=== PATIENT | female | born 1985 | race Caucasian/White ===

== ENCOUNTER 2017-03-11 16:10 | Emergency (ER) | payer OTHER ==
[~2017-03-11] VITALS: Ht 160 cm; Wt 64.2 kg
[~2017-03-11 16:10] MED LIST: ACYCLOVIR200 MG PO; AMPICILLIN TRI500 MG PO; ANAPROX DS550 M1 PO; BACTRIM,SEPT1 TABLET PO; ENDOCET 5-3251 EACH PO; Fioricet,Esgic,Repan PO; IBUPROFEN800 MG PO; IMITREX100 MG PO; IRON325 MG PO; KEFLEX500 MG PO; Lactinex,Floranex PO; Levaquin PO; MOTRIN600 MG PO; NORCO 5/3251 TABLET PO; Naprosyn PO; PRENATAL TABLE1 EAC3 PO; Phenergan PO; TRAMADOL HCL50 MG PO; TYLENOL PM EX-1 EACH PO; Tylenol Regular Stre PO; VALTREX1000 MG PO; VICODIN,LORT1 TABLET PO; Xanax PO; ZANTAC150 MG PO; ZOFRAN4 MG PO
[2017-03-11 16:46] LABS: HEMATOCRIT 36.8 % (36.0-46.0); MCH 29.7 PG (29.0-34.0); MCHC 32.6 G/DL (30.0-36.0); MCV 91.1 FL (83-99); MEAN PLAT.VOLUME 11.1 uM^3 (9.5-12.4); PLATELET COUNT 170 K/uL (156-360); RBC DIS.WIDTH-CV 12.6 % (11.8-14.6); RED BLOOD COUNT 4.04 M/uL (3.80-5.20); WHITE BLOOD COUNT 6.3 K/uL (4.1-10.2)
[2017-03-11 16:54] LABS: CHLORIDE 106 mEq/L (99-109); POTASSIUM 3.8 mEq/L (3.7-5.4); SODIUM 141 mEq/L (136-147)
[2017-03-11 16:56] LABS: GLUCOSE 88 mg/dL (70-99)
[2017-03-11 16:57] LABS: ANION GAP 8 MEQ/L (2-14)
[2017-03-11 17:00] LABS: GFR ESTIMATE (CALCULATED) > 59 mL/min/
[2017-03-11 17:01] LABS: UREA NITROGEN (BUN) 14 mg/dL (9-23)
[2017-03-11 17:08] LABS: TROP-I INTERPRETATION NEGATIVE; TROPONIN-I < 0.01 ng/mL (0.0-0.30)
[2017-03-11] MEDS ORDERED: ATARAX,VISTARIL25 MG PO (17:44)
[2017-03-11] MEDS ORDERED: INDOCIN50 MG PO (17:44)
[2017-03-11 18:11] VITALS: BP 137/65
== END 2017-03-11 18:22 | disposition home or self-care (01) ==
LOC: EME 16:10
PROVIDERS: Physician Assistant
DX: R07.9 Chest pain, unspecified (principal); R10.9 Unspecified abdominal pain; R42 Dizziness and giddiness; F43.9 Reaction to severe stress, unspecified; Z87.891 Personal history of nicotine dependence; R01.1 Cardiac murmur, unspecified; Z82.49 Family history of ischemic heart disease and other diseases of the circulatory system; F41.9 Anxiety disorder, unspecified; Z87.442 Personal history of urinary calculi; Z87.440 Personal history of urinary (tract) infections
CPT/HCPCS: 71020; 80048; 83735; 84443; 84484; 85027; 93005; 99281; 99284; Q0177

== ENCOUNTER 2017-04-13 16:59 | Emergency (ER) | payer OTHER ==
[~2017-04-13] VITALS: Ht 162.6 cm; Wt 64.0 kg
[~2017-04-13 16:59] MED LIST changes: +ATARAX,VISTARIL25 MG PO; +INDOCIN50 MG PO
[2017-04-13 18:06] LABS: APPEARANCE SL.HAZY ((CLEAR)); BILIRUBIN NEGATIVE; BLOOD SMALL; COLOR YELLOW ((YELLOW)); GLUCOSE (STRIP) NEGATIVE; KETONES 80; LEUKOCYTES MODERATE; NITRITE NEGATIVE; PROTEIN (STRIP) 30; SPECIFIC GRAVITY 1.023 (1.000-1.030)
[2017-04-13 18:10] LABS: HEMATOCRIT 37.2 % (36.0-46.0); HEMOGLOBIN 12.4 G/DL (11.9-15.5); MCH 30.2 PG (29.0-34.0); MCHC 33.3 G/DL (30.0-36.0); MCV 90.5 FL (83-99); PLATELET COUNT 119 K/uL (156-360); RBC DIS.WIDTH-CV 12.3 % (11.8-14.6); RBC DIS.WIDTH-SD 40.9 % (39-53); RED BLOOD COUNT 4.11 M/uL (3.80-5.20); WHITE BLOOD COUNT 9.8 K/uL (4.1-10.2)
[2017-04-13 18:12] LABS: BACTERIA RARE /HPF; EPITHELIAL CELLS 2+ /HPF; MUCUS 2+ /LPF; UCUL ADDED? YES; WHITE BLOOD CELLS TNTC /HPF (0-5)
[2017-04-13 18:26] LABS: CHLORIDE 106 mEq/L (99-109); POTASSIUM 3.8 mEq/L (3.7-5.4); SODIUM 138 mEq/L (136-147)
[2017-04-13 18:28] LABS: GLUCOSE 123 mg/dL (70-99)
[2017-04-13 18:32] LABS: CREATININE 0.7 mg/dL (0.6-1.3); GFR ESTIMATE (CALCULATED) > 59 mL/min/; UREA NITROGEN (BUN) 13 mg/dL (9-23)
[2017-04-13 18:35] LABS: QUANTITATIVE HCG < 4.0 MIU/ML
[2017-04-13] MEDS ORDERED: KEFLEX500 MG PO (18:41)
[2017-04-13] MEDS ORDERED: NORCO 5/3251 TABLET PO (18:41)
[2017-04-13] MEDS ORDERED: ZOFRAN4 MG PO (18:41)
[2017-04-13 20:06] VITALS: BP 150/73
== END 2017-04-13 20:06 | disposition home or self-care (01) ==
LOC: EME 16:59
PROVIDERS: Physician Assistant
DX: N12 Tubulo-interstitial nephritis, not specified as acute or chronic (principal); R11.2 Nausea with vomiting, unspecified; Z87.442 Personal history of urinary calculi; Z87.891 Personal history of nicotine dependence
CPT/HCPCS: 80048; 81003; 84702; 85027; 87077; 87086; 87186; 99281; 99285; J0696; J2405; J7030

== ENCOUNTER 2017-05-20 11:58 | Emergency (ER) | payer OTHER ==
[~2017-05-20] VITALS: Ht 162.6 cm; Wt 63.9 kg
[2017-05-20 12:23] LABS: APPEARANCE CLOUDY ((CLEAR)); BILIRUBIN NEGATIVE; BLOOD SMALL; COLOR YELLOW ((YELLOW)); GLUCOSE (STRIP) NEGATIVE; KETONES 80; LEUKOCYTES LARGE; NITRITE POSITIVE; PROTEIN (STRIP) 100; SPECIFIC GRAVITY 1.021 (1.000-1.030); UROBILINOGEN 0.2 MG/DL (0.2-1.0)
[2017-05-20 12:39] LABS: EPITHELIAL CELLS 1+ /HPF; MUCUS 1+ /LPF; RED BLOOD CELLS 0-5 /HPF (0-5); WHITE BLOOD CELLS 40-50 /HPF (0-5)
[2017-05-20 12:40] LABS: BACTERIA 1+ /HPF; UCUL ADDED? YES
[2017-05-20 13:08] LABS: HEMATOCRIT 38.5 % (36.0-46.0); HEMOGLOBIN 12.7 G/DL (11.9-15.5); MCH 29.7 PG (29.0-34.0); PLATELET COUNT 127 K/uL (156-360); RBC DIS.WIDTH-CV 12.6 % (11.8-14.6); RBC DIS.WIDTH-SD 41.7 % (39-53); RED BLOOD COUNT 4.28 M/uL (3.80-5.20); WHITE BLOOD COUNT 13.1 K/uL (4.1-10.2)
[2017-05-20 13:18] LABS: CHLORIDE 102 mEq/L (99-109); POTASSIUM 3.9 mEq/L (3.7-5.4); SODIUM 137 mEq/L (136-147)
[2017-05-20 13:19] LABS: GLUCOSE 97 mg/dL (70-99)
[2017-05-20 13:23] LABS: CREATININE 0.7 mg/dL (0.6-1.3); GFR ESTIMATE (CALCULATED) > 59 mL/min/
[2017-05-20 13:24] LABS: UREA NITROGEN (BUN) 11 mg/dL (9-23)
[2017-05-20 13:32] LABS: QUANTITATIVE HCG < 4.0 MIU/ML
[2017-05-20] MEDS ORDERED: KEFLEX500 MG PO (16:10)
[2017-05-20] MEDS ORDERED: MOTRIN600 MG PO (16:10)
[2017-05-20] MEDS ORDERED: ZOFRAN ODT4 MG PO (16:10)
[2017-05-20] MEDS ORDERED: FLOMAX0.4 MG PO (16:53)
[2017-05-20 17:02] VITALS: BP 124/79
== END 2017-05-20 17:03 | disposition home or self-care (01) ==
LOC: EME 11:58
DX: N20.0 Calculus of kidney (principal); N39.0 Urinary tract infection, site not specified; R50.9 Fever, unspecified; Z87.442 Personal history of urinary calculi; Z87.440 Personal history of urinary (tract) infections; F41.9 Anxiety disorder, unspecified; R56.9 Unspecified convulsions; Z87.891 Personal history of nicotine dependence
CPT/HCPCS: 74176; 80048; 81003; 83605; 84702; 85027; 87077; 87086; 87186; 99281; 99285; J0696; J1885; J2405; J7030

== ENCOUNTER 2017-06-06 16:09 | Emergency (ER) | payer OTHER ==
[~2017-06-06] VITALS: Ht 162.6 cm; Wt 61.9 kg
[~2017-06-06 16:09] MED LIST changes: +FLOMAX0.4 MG PO; +ZOFRAN ODT4 MG PO
[2017-06-06 16:15] VITALS: BP 114/68
[2017-06-06 17:05] LABS: HEMATOCRIT 37.9 % (36.0-46.0); HEMOGLOBIN 12.5 G/DL (11.9-15.5); MCH 29.6 PG (29.0-34.0); MCV 89.8 FL (83-99); RBC DIS.WIDTH-CV 12.7 % (11.8-14.6); RBC DIS.WIDTH-SD 41.6 % (39-53); RED BLOOD COUNT 4.22 M/uL (3.80-5.20); WHITE BLOOD COUNT 6.8 K/uL (4.1-10.2)
[2017-06-06 17:08] LABS: PLATELET COUNT 201 K/uL (156-360)
[2017-06-06 17:14] LABS: CHLORIDE 109 mEq/L (99-109); POTASSIUM 3.7 mEq/L (3.7-5.4); SODIUM 141 mEq/L (136-147)
[2017-06-06 17:16] LABS: GLUCOSE 110 mg/dL (70-99); TOTAL PROTEIN 6.6 g/dL (6.4-8.3)
[2017-06-06 17:18] LABS: TOTAL BILIRUBIN 0.4 mg/dL (0.0-1.0)
[2017-06-06 17:20] LABS: ALKALINE PHOSPHATASE 50 IU/L (3-129); CREATININE 0.8 mg/dL (0.6-1.3); GFR ESTIMATE (CALCULATED) > 59 mL/min/
[2017-06-06 17:21] LABS: AST (GOT) 12 IU/L (2-34); UREA NITROGEN (BUN) 13 mg/dL (9-23)
[2017-06-06 17:23] LABS: ALT (GPT) 10 IU/L (3-49)
[2017-06-06 17:26] LABS: TROP-I INTERPRETATION NEGATIVE; TROPONIN-I < 0.01 ng/mL (0.0-0.30)
[2017-06-06 17:28] LABS: QUANTITATIVE HCG < 4.0 MIU/ML
[2017-06-06] MEDS ORDERED: ATARAX,VISTARIL25 MG PO (18:32)
[2017-06-06 18:45] LABS: THYROTROPIN (TSH) 0.56 MIU/L (0.4-5.5)
== END 2017-06-06 18:48 | disposition home or self-care (01) ==
LOC: EME 16:09
PROVIDERS: Physician Assistant
DX: R07.9 Chest pain, unspecified (principal); F41.9 Anxiety disorder, unspecified
CPT/HCPCS: 71046; 80053; 84443; 84484; 84702; 85027; 93005; Q0177

== ENCOUNTER 2017-06-13 10:44 | Emergency (ER) | payer OTHER ==
[~2017-06-13] VITALS: Ht 162.6 cm; Wt 62.7 kg
[2017-06-13 11:50] LABS: HEMOGLOBIN 13.5 G/DL (11.9-15.5); MCH 30.5 PG (29.0-34.0); MCHC 33.8 G/DL (30.0-36.0); MCV 90.3 FL (83-99); RBC DIS.WIDTH-CV 12.8 % (11.8-14.6); RBC DIS.WIDTH-SD 42.2 % (39-53); RED BLOOD COUNT 4.43 M/uL (3.80-5.20); WHITE BLOOD COUNT 15.4 K/uL (4.1-10.2)
[2017-06-13 11:54] LABS: PLATELET COUNT 154 K/uL (156-360)
[2017-06-13 12:03] LABS: ALBUMIN 4.3 g/dL (3.2-4.8)
[2017-06-13 12:04] LABS: CHLORIDE 107 mEq/L (99-109); POTASSIUM 4.3 mEq/L (3.7-5.4); SODIUM 139 mEq/L (136-147)
[2017-06-13 12:06] LABS: GLUCOSE 113 mg/dL (70-99)
[2017-06-13 12:09] LABS: ALKALINE PHOSPHATASE 67 IU/L (3-129)
[2017-06-13 12:10] LABS: CREATININE 0.8 mg/dL (0.6-1.3); GFR ESTIMATE (CALCULATED) > 59 mL/min/
[2017-06-13 12:11] LABS: UREA NITROGEN (BUN) 11 mg/dL (9-23)
[2017-06-13 12:13] LABS: ALT (GPT) 16 IU/L (3-49)
[2017-06-13 12:18] LABS: QUANTITATIVE HCG < 4.0 MIU/ML
[2017-06-13 12:22] LABS: AST (GOT) 27 IU/L (2-34); TOTAL PROTEIN 7.8 g/dL (6.4-8.3)
[2017-06-13 12:47] LABS: APPEARANCE CLOUDY ((CLEAR)); BILIRUBIN NEGATIVE; BLOOD MODERATE; COLOR YELLOW ((YELLOW)); GLUCOSE (STRIP) NEGATIVE; KETONES 5; LEUKOCYTES LARGE; NITRITE POSITIVE; PROTEIN (STRIP) 100; SPECIFIC GRAVITY 1.015 (1.000-1.030); UROBILINOGEN 0.2 MG/DL (0.2-1.0)
[2017-06-13 13:19] LABS: RED BLOOD CELLS RARE /HPF (0-5); WHITE BLOOD CELLS TNTC /HPF (0-5)
[2017-06-13 13:24] LABS: BACTERIA 1+ /HPF; EPITHELIAL CELLS RARE /HPF; MUCUS NONE SEEN /LPF; UCUL ADDED? YES
[2017-06-13] MEDS ORDERED: LEVAQUIN750 MG PO (13:34)
[2017-06-13] MEDS ORDERED: ZOFRAN ODT4 MG PO (13:34)
[2017-06-13] MEDS ORDERED: ULTRAM50 MG PO (13:34)
[2017-06-13 15:27] VITALS: BP 118/56
== END 2017-06-13 15:24 | disposition home or self-care (01) ==
LOC: EME 10:44
PROVIDERS: Nurse Practitioner Family
DX: N12 Tubulo-interstitial nephritis, not specified as acute or chronic (principal); R11.2 Nausea with vomiting, unspecified; N20.0 Calculus of kidney; Z87.440 Personal history of urinary (tract) infections; Z87.442 Personal history of urinary calculi; Z87.891 Personal history of nicotine dependence
CPT/HCPCS: 74177; 80053; 81003; 84702; 85027; 87077; 87086; 87186; 99281; 99284; J1885; J1956; J2405; J7030

== ENCOUNTER 2017-07-13 21:33 | Emergency (ER) | payer OTHER ==
[~2017-07-13] VITALS: Ht 160 cm; Wt 60.9 kg
[~2017-07-13 21:33] MED LIST changes: +LEVAQUIN750 MG PO; +ULTRAM50 MG PO
[2017-07-13] MEDS ORDERED: ROBITUSSIN AC,T10 ML PO (22:35)
[2017-07-13] MEDS ORDERED: PROAIR HFA8.5 GM IH (22:35)
[2017-07-13 22:46] VITALS: BP 99/79
== END 2017-07-13 22:48 | disposition home or self-care (01) ==
LOC: EME 21:33
DX: J06.9 Acute upper respiratory infection, unspecified (principal); F41.9 Anxiety disorder, unspecified; Z87.442 Personal history of urinary calculi; Z87.440 Personal history of urinary (tract) infections; Z87.891 Personal history of nicotine dependence; Z88.5 Allergy status to narcotic agent
CPT/HCPCS: 71046; 80048; 81003; 85027; 87502; 99281; 99283; J8540